=== PATIENT | female | born 1960 | race Caucasian/White ===

== ENCOUNTER → 2021-10-29 04:04 | Outpatient (CLI) | payer OTHER, SELFPAY ==
[2021-10-29 20:23] LABS: SARS-CoV-2 RNA PCR Positive
== END ==
PROVIDERS: PCP Family Medicine; Visit Provider Family Medicine
DX: U07.1 COVID-19 (principal)
CPT/HCPCS: C9803; U0003; U0005

== ENCOUNTER 2023-12-04 09:57 | Emergency (ER) | payer OTHER, SELFPAY ==
[2023-12-04 10:05] VITALS: BP 163/92; PULSE 87; RESP 20; TEMP 36.6; O2SAT 98
--- NOTE | 2023-12-04 13:31 | PC.NURSE ---
CALLED FOR ROOM, PT NOT IN LOBBY
== END 2023-12-04 13:50 | disposition left against medical advice (07) ==
PROVIDERS: PCP Family Medicine
DX: H92.22 Otorrhagia, left ear (principal)
CPT/HCPCS: 99199

== ENCOUNTER 2023-12-04 12:33 | Emergency (ER) | payer OTHER, SELFPAY ==
[2023-12-04 12:47] VITALS: BP 137/81; PULSE 93; RESP 18; TEMP 36.2; O2SAT 97
--- NOTE | 2023-12-04 13:22 | ED.EAR ---
HPI - Ear Problem General Chief complaint: Ear Stated complaint: left ear drainage Time Seen by Provider: 12/04/23 13:13 Source: patient and RN notes reviewed Mode of arrival: ambulatory Limitations: no limitations History of Present Illness HPI Narrative: patient presents today complaining of a 2 day history of left ear pain and drainage. States it started out watery with a spot of blood, but states today the drainage has turned a yellow-brown. She has not tried any [id number] medication for symptoms prior to arrival. Reports history of surgery on her left ear drum the left her with a hole, however, review of her chart shows an ENT visit in 2020 shows some scarring of the TM, but no defect. Related Data Home Medications Medication Instructions Recorded Confirmed aspirin 81 mg tablet 81 mg PO DAILY 05/29/21 12/04/23 hydroxyzine HCl 50 mg tablet 50 mg PO DAILY 05/29/21 12/04/23 lurasidone 80 mg tablet (Latuda) 80 mg PO DAILY 05/29/21 12/04/23 mirtazapine 45 mg tablet 45 mg PO DAILY 05/29/21 12/04/23 clonazepam 1 mg tablet 1 mg PO DAILY PRN Anxiety 09/28/21 12/04/23 Allergies Allergy/AdvReac Type Severity Reaction Status Date / Time quetiapine Allergy Unknown Other Verified 09/28/21 12:58 trazadone Allergy Unknown Other Uncoded 09/28/21 12:58 Review of Systems Review of Systems: CONSTITUTIONAL: Denies body aches, fever, chills, or sweats. EYES: Denies visual changes, redness, or discharge. ENT: Denies rhinorrhea, congestion, sore throat. + Left ear pain and drainage CARDIOVASCULAR: Denies chest pain, palpitations, or edema. RESPIRATORY: Denies cough or dyspnea. GASTROINTESTINAL: Denies abdominal pain, nausea, vomiting, or diarrhea. GENITOURINARY: Denies dysuria or hematuria. SKIN: Denies rash, itching, or wounds. MUSCULOSKELETAL: Denies back pain, joint pain, or myalgia. NEUROLOGIC: Denies headache, numbness, tingling, or weakness. PSYCH: Denies depression or anxiety. [facility] Past Medical History Medical History (Updated 12/04/23 @ 13:28 by Bertha Shen, [employer], ) Alcoholism Hepatitis C PTSD (post-traumatic stress disorder) Social History Social History Smoking packs per day: 1 Smoking cigarettes per day: 20.0 Years smoked: 48 Smoking pack-years: 48.00 Smoking status: Current every day smoker Tobacco type: cigarettes Alcohol intake: current Drinks per week: 35 Alcohol use details: 5 shots of whiskey per day Substance use: current Spiritual care concerns: No Comments At time of signature, I have reviewed and agree with nursing past medical, surgical, social and family history unless otherwise noted. Please see nursing chart for further information. There is no relevant family history pertinent to the presenting complaint Exam Narrative: GENERAL: Well-appearing, well-nourished, and in no acute distress. HEAD: Normocephalic, atraumatic. EYES: EOMI. No redness or drainage. Conjunctivae normal. ENT: Mucous membranes pink and moist. Nares clear. No rhinorrhea. right TM normal. Left TM mildly erythematous. No obvious defect noted. No drainage noted in the ear canal. Ear canal normal. NECK: Normal AROM. Supple. No lymphadenopathy. CHEST: No respiratory distress. EXTREMITIES: Normal range of motion. No edema. SKIN: Warm, dry, no rash. Capillary refill normal. Normal skin turgor. NEURO: No focal deficits. Alert and oriented x3. Gait steady. PSYCH: Normal affect. No signs of depression or anxiety. Course Course Level of Care: Express Care Visit Vital Signs Vital signs: Vital Signs Temperature 97.1 F L 12/04/23 12:47 Pulse Rate 93 12/04/23 12:47 Respiratory Rate 18 12/04/23 12:47 Blood Pressure 137/81 12/04/23 12:47 Pulse Oximetry 97 12/04/23 12:47 Oxygen Delivery Room Air 12/04/23 12:47 Temperature 97.1 F L 12/04/23 12:47 Pulse Rate 93 12/04/23 12:47 Resp
== END 2023-12-04 13:35 | disposition home or self-care (01) ==
PROVIDERS: Emergency Provider Nurse Practitioner; PCP Physician Assistant
DX: H66.92 Otitis media, unspecified, left ear (principal); F17.210 Nicotine dependence, cigarettes, uncomplicated; Z79.82 Long term (current) use of aspirin
CPT/HCPCS: 99213; G0463

== ENCOUNTER 2024-07-21 16:00 | Emergency (ER) | payer OTHER, SELFPAY ==
--- NOTE | ~2024-07-21 | CT_ITS ---
EXAMINATION: CT facial & cervical spine wo DATE: 07/21/2024 16:27 INDICATION: Head injury. TECHNIQUE: Computed tomography (CT) of the maxillofacial region and cervical spine was performed with out intravenous contrast. Automated exposure control and iterative reconstruction technique were empl oyed. The dose-length product was 129.38 mGy-cm. COMPARISON: None FINDINGS: MAXILLOFACIAL CT: There is soft tissue swelling of left face. There are fractures of the anterior and posterolateral wa lls of left maxillary sinus and lateral wall and floor of left orbit. There are fractures of right zy gomatic arch, anterior and posterolateral loya of right maxillary sinus, and lateral wall of right o rbit. There is rightward deviation of the nasal septum. There is mucosal thickening in the paranasal sinuses with hematoma in the maxillary sinuses. There is a left mastoid effusion. CERVICAL SPINE CT: Emphysema is noted. There is mild scarring at the lung apices. Calcified left lung nodules are consis tent with old granulomatous disease. There is hypolordosis of cervical spine. Vertebral body heights are normal. There is mildly decreased disc height at C4-C5, C5-C6, and C6-C7. The following disc leve ls are specifically discussed: C2-C3: There is mild bilateral uncovertebral joint osteoarthritis. There is moderate bilateral facet joint osteoarthritis. There is no neural foraminal stenosis. There is no central canal stenosis. C3-C4: There is moderate right and severe left uncovertebral joint osteoarthritis. There is mild righ t and severe left facet joint osteoarthritis. There is mild bilateral neural foraminal stenosis. Ther e is mild central canal stenosis. C4-C5: There is severe right and moderate left uncovertebral joint osteoarthritis. There is mild righ t facet joint osteoarthritis. There is mild bilateral neural foraminal stenosis. There is mild centra l canal stenosis. C5-C6: There is severe right and mild left uncovertebral joint osteoarthritis. There is mild bilatera l facet joint osteoarthritis. There is mild right neural foraminal stenosis. There is mild central ca nal stenosis. C6-C7: There is no uncovertebral joint osteoarthritis. There is mild bilateral facet joint osteoarthr itis. There is no neural foraminal stenosis. There is no central canal stenosis. C7-T1: There is no uncovertebral joint osteoarthritis. There is mild bilateral facet joint osteoarthr itis. There is no neural foraminal stenosis. There is no central canal stenosis. IMPRESSION: 1. Fractures of the bilateral zygomaticomaxillary complexes. 2. Mild cervical spondylosis. Reviewed, dictated and finalized at location A.
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
[2024-07-21 16:00] VITALS: BP 154/107; PULSE 85; RESP 15; TEMP 36.7; O2SAT 94
[2024-07-21] MEDS: TETANUS,DIPHTHERIA,AC PERTUSSIS ADULT (0.5 ML) BOOSTRIX IM (17:55)
[2024-07-21 18:14] VITALS: BP 162/118; PULSE 93; RESP 14; O2SAT 94
[2024-07-21] MEDS: HYDROcodone/acetaminophen (*CRX) 5-325 MG TABLET 2 TAB PO (18:14)
--- NOTE | 2024-07-21 18:18 | PC.NURSE ---
C-collar removed per Dr. Urena
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
== END 2024-07-21 18:57 | disposition home or self-care (01) ==
PROVIDERS: Emergency Provider Emergency Medicine; PCP Physician Assistant
DX: S02.40DA Maxillary fracture, left side, initial encounter for closed fracture (principal); S02.40CA Maxillary fracture, right side, initial encounter for closed fracture; S02.32XA Fracture of orbital floor, left side, initial encounter for closed fracture; S02.842A Fracture of lateral orbital wall, left side, initial encounter for closed fracture; S02.841A Fracture of lateral orbital wall, right side, initial encounter for closed fracture; S02.40EA Zygomatic fracture, right side, initial encounter for closed fracture; Z23 Encounter for immunization; F17.210 Nicotine dependence, cigarettes, uncomplicated; F43.10 Post-traumatic stress disorder, unspecified; F10.20 Alcohol dependence, uncomplicated; Z86.19 Personal history of other infectious and parasitic diseases; Z79.82 Long term (current) use of aspirin; Z79.899 Other long term (current) drug therapy; M47.812 Spondylosis without myelopathy or radiculopathy, cervical region; Y04.2XXA Assault by strike against or bumped into by another person, initial encounter
CPT/HCPCS: 70450; 70486; 72125; 90471; 90715; 99284; A9270

== ENCOUNTER 2024-12-23 10:53 | Emergency (ER) | payer OTHER, SELFPAY ==
[2024-12-23 11:10] VITALS: BP 111/67; PULSE 79; RESP 16; TEMP 36.6; O2SAT 96
--- NOTE | 2024-12-23 11:23 | ED_ITS ---
HPI - URI/Sore Throat General Chief Complaint: Upper Respiratory Infection Stated Complaint: rt side throat pain,hard to breath,both ears hurt Time Seen by Provider: 12/23/24 11:23 Source: patient, RN notes reviewed and old records reviewed Mode of arrival: ambulatory Limitations: no limitations History of Present Illness HPI Narrative: 64 year old female presents to [facility] care with complaints of intermittent h oarseness and sore throat for the past 5 months with increased symptoms since Friday. Patient reports that the right side of her throat is sore and she has some bilateral ear pain. Patient denies any fevers or increased cough reports some dyspnea. Patient has long history of tobacco abuse and admits to drinking alcohol daily about a 1/2 pint. Patient reports past use of marijuana and crack cocaine. MD elicited complaint: other (right side throat pain, states hard to breath and bilateral ear pain) Pertinent past history: other (tobacco abuse) Onset (ago): month(s) (inital symptoms for 5 months increased in past 4 days) Consistency: constant Severity: moderate Able to tolerate fluids by mouth: Yes Treatments prior to arrival: none Related Data Home Medications ?Medication ?Instructions ?Recorded ?Confirmed ?Last Taken ?Type aspirin 81 mg tablet 81 mg PO DAILY 05/29/21 12/04/23 Unknown History hydroxyzine HCl 50 mg tablet 50 mg PO DAILY 05/29/21 12/04/23 Unknown History lurasidone 80 mg tablet (Latuda) 80 mg PO DAILY 05/29/21 12/04/23 Unknown History mirtazapine 45 mg tablet 45 mg PO DAILY 05/29/21 12/04/23 Unknown History clonazepam 1 mg tablet 1 mg PO DAILY PRN Anxiety 09/28/21 12/04/23 Unknown History Allergies Allergy/AdvReac Type Severity Reaction Status Date / Time quetiapine Allergy Unknown Other Verified 12/23/24 11:09 trazadone Allergy Unknown Other Uncoded 12/23/24 11:09 Review of Systems Review of Systems: CONSTITUTIONAL: Denies malaise, chills, sweats, or fever. EYES: Denies visual changes, redness, or discharge. ENT: Reports rhinorrhea, congestion,no sinus pain,positive for otalgia and sore throat. CARDIOVASCULAR: Denies chest pain, palpitations, or edema. RESPIRATORY: Reports cough.? Reports dyspnea. GASTROINTESTINAL: Denies abdominal pain, nausea, vomiting, diarrhea SKIN: Denies rash or itching. MUSCULOSKELETAL: Denies myalgia. NEUROLOGIC: Denies headache. All systems reviewed & are unremarkable except as noted in HPI and below PMFSH Past Medical History Medical History (Updated 12/25/24 @ 09:53 by Amelia Oviedo NP) Facial bones, closed fracture PTSD (post-traumatic stress disorder) Hepatitis C Alcoholism Surgical History Surgical History (Updated 12/25/24 @ 09:45 by Amelia Oviedo NP) History of tympanoplasty of left ear Social History Social History Smoking packs per day: 1 Smoking cigarettes per day: 20.0 Years smoked: 48 Smoking pack-years: 48.00 Smoking status: Current every day smoker Tobacco type: cigarettes Alcohol intake: current Drinks per week: 35 Alcohol use details: 5 shots of whiskey per day Substance use: current Spiritual care concerns: No Comments At time of signature, agree with nursing past medical, surgical, social and family history. There is no relevant family history pertinent to the presenting complaint Exam Narrative: GENERAL:Chronic ill-appearing, fair-nourished, looks older than stated age and in no acute distress. HEAD: Normocephalic EYES: PERRLA, conjunctivae clear ENT: Nares clear, turbinates edematous and erythematous, clear discharge. Mucous membranes moist. TM pearly sanchez with dull light reflex bilaterally; no tragal tenderness. Oropharynx erythematous without lesions. Tonsils not enlarged and without exudate, no drooling, positive for hoarseness, no trismus, uvula midline.some post nasal drainage NECK: Supple. No lymphadenopathy CHEST: Scattered wheezing throughout lung sánchez, breath sounds equal. + wheezing, no rhonchi, rales, or stridor. No respiratory distress, speaks in full sentences.positive for dry cough SAO2 96% on room air HEART: Regular rate and rhythm. No murmur heard. SKIN: Warm, dry, no rash. NEURO: Alert and oriented x3. PSYCH: Normal mood and affect Course Course Emergency Course: Patient is aware of diagnosis, understands and agrees to treatment plan.? Anticipatory guidance given.? Patient agrees to follow-up as directed and is aware of reasons to seek care at the emergency department. Portions of this record may have been created with voice recognition software Level of Care: Express Care Visit Vital Signs Vital signs: Vital Signs Temperature 36.6 C 12/23/24 11:10 Pulse Rate 79 12/23/24 11:10 Respiratory Rate 16 12/23/24 11:10 Blood Pressure 111/67 12/23/24 11:10 Pulse Oximetry 96 12/23/24 11:10 Oxygen Delivery Room Air 12/23/24 11:10 Temperature 36.6 C 12/23/24 11:10 Pulse Rate 79 12/23/24 11:25 Respiratory Rate 16 12/23/24 11:25 Blood Pressure 111/67 12/23/24 11:10 Pulse Oximetry 96 12/23/24 11:25 Oxygen Delivery Room Air 12/23/24 11:10 Reviewed MDM - URI/Sore Throat MDM Narrative Medical decision making narrative: Differential diagnosis considered: Guerra virus, strep pharyngitis, allergic rhinitis, upper respiratory tract infection, sinusitis, rhinosinusitis, nasopharyngitis. viral pharyngitis, otitis media, otitis externa, pneumonia, bronchitis, viral cough syndrome, viral syndrome, and influenza.? Exam findings show no acute concerns or changes; patient is non-toxic appearing and is in no distress.? Patient is appropriate for outpatient treatment and follow-up. Differential Diagnosis Differential diagnosis: Likely upper respiratory infection, otitis media, bronchitis, pharyngitis and other (strep pharyngitis, hoarseness) Medical Records Attestation: I reviewed the patient's medical records. Lab Data Attestation: I reviewed the patient's lab results. Lab results narrative: strep screen negative, culture sent Labs: Lab Results 12/23/24 Range/Units 11:32 POC Grp A Strep Screen Negative (Negative) Critical Care Time Critical Care Time Critical Care Time: No Discharge Plan Discharge Clinical Impression: Bronchitis, Otalgia of both ears Patient Disposition: Home, Self-Care Condition: Stable Instructions: Antibiotic Form, Acute Bronchitis (ED) Additional Instructions: Increase fluids especially juices and water [id number]-caegvmy cough and cold medicine of your choice for your symptoms Zyrtec Claritin or Ania daily Tylenol or ibuprofen for any fever pain Continue your inhaler/nebulizer as directed Steroids as directed--take with food heat to the face 20-30 minutes 4-6 times a day for pain Salt water gargles, throat lozenges or throat sprays as desired Antibiotic as directed--finished the medication You need to QUIT smoking and you need to quit drinking recommend evaluation by ENT for hoarseness and sore throat for many months call your PCP to get appointment If your symptoms persist, change or worsen significantly before you can contact your personal physician then please, without delay, go to the emergency department for further evaluation. Follow-up with PCP in 7-10 days or sooner if needed Patient Language: German Prescriptions: New albuterol sulfate [Ventolin HFA] 90 mcg/actuation HFA aerosol inhaler 2 puff inhalation QID PRN (Reason: shortness of breath or wheezing) Qty: 8.5 0RF Rx Instructions: as needed up to 4 times daily prednisone 20 mg tablet 20 mg PO BID 5 Days Qty: 10 0RF Rx Instructions: take with food amoxicillin 500 mg capsule 500 mg PO TID Qty: 21 0RF No Action hydroxyzine HCl 50 mg Tablet 50 mg PO DAILY mirtazapine 45 mg Tablet 45 mg PO DAILY aspirin 81 mg Tablet 81 mg PO DAILY lurasidone [Latuda] 80 mg Tablet 80 mg PO DAILY clonazepam 1 mg tablet 1 mg PO DAILY PRN (Reason: Anxiety) Follow-up/Referrals: Arti,JAZMINE Walls [Primary Care Provider] - Time of Disposition: 11:49 Quality [place] Coma Scale Eyes: Open Verbal: Oriented and Alert Motor: Follows Commands Rohit Coma Total Score: 15
[2024-12-23 11:25] VITALS: PULSE 79; RESP 16; O2SAT 96
[2024-12-23 11:34] LABS: EDSTREPNEGPOS1 Negative (Negative)
== END 2024-12-23 12:07 | disposition home or self-care (01) ==
PROVIDERS: Emergency Provider Registered Nurse; PCP Physician Assistant
DX: J40 Bronchitis, not specified as acute or chronic (principal); H92.03 Otalgia, bilateral; F17.210 Nicotine dependence, cigarettes, uncomplicated
CPT/HCPCS: 87081; 87880; 99213; G0463